=== PATIENT | female | born 1955 | race Caucasian/White ===

== ENCOUNTER 2018-12-27 10:58 | Emergency (ER) | payer BC, SELFPAY ==
[2018-12-27 11:01] VITALS: BP 137/92; PULSE 98; RESP 16; TEMP 36.6; O2SAT 98
--- NOTE | 2018-12-27 11:12 | W.ED.GENAD ---
Discharge Plan Disposition Patient Disposition: HOME Condition: Stable Discharge Details Chief Complaint: Orthopedic Clinical Impression: Contusion Primary Care Provider: Tosin Goldman V ED Provider: Salty Ulloa Home Meds and New Rx's Prescriptions: Continued lorazepam 0.5 MG tablet 0.5 mg PO PRN PRNRF: 0 Discharge Instructions Instructions: Contusion in Adults (ED) Additional Instructions: Home to rest today, may slowly advance activity and routine as tolerated. May apply over the counter topical cream such as arnica for pain relief. May use ibuprofen and/or tylenol as needed for discomfort. Return for any acute concerns. Medical Decision Making 63-year-old female presents from home with 2 days of aching right shoulder and elbow pain after falling in a grocery store. She did not injure herself in any other way. She said no numbness, tingling, or weakness. Her exam is reassuring but does demonstrate tenderness overlying the right lateral shoulder and right elbow. Patient referred for radiographic evaluation, no evidence of acute fracture. Discussed with her home management of bony contusion. She is stable for discharge at this time. HPI General Mode of arrival: ambulatory. Date/Time Provider Initiated Documentation: 12/27/18 10:58. Limitations to Documentation: no limitations. Information obtained by: patient. History of Present Illness 63 year old F presents to the emergency department with the chief complaint of Right elbow and shoulder pain after fall 2 days ago, described as moderate, Quality is described as dull, and is localized to the right and upper extremity. Patient reports no radiation. Patient started experiencing this day(s) and it has been constant. No relieving factors improve symptom(s), No exacerbating factors reported . Patient notes no other symptoms. and other (No numbness or tingling). Patient did receive the following treatments prior to arrival, none Related Data Home Medications Medication Instructions Recorded Confirmed lorazepam 0.5 mg PO PRN PRN 12/09/14 12/27/18 Allergies Allergy/AdvReac Type Severity Reaction Status Date / Time Sulfa (Sulfonamide Allergy Mild Skin Rash Unverified 12/27/18 11:08 Antibiotics) General Stated Complaint: Orthopedic PAUL: 4 Review of Systems Review of Systems 6 systems reviewed and otherwise negative. No headache/back/chest/abdominal pain or injury [facility] Social History Smoking/Tobacco Use Status: Former Tobacco Use Drug use: Daily Details: CBD oil Do you feel safe at home: Yes Do you feel safe in your relationship?: Yes Exam Narrative Exam Narrative: GEN: awake, alert, oriented 3. Pleasant, well groomed, interactive. HEAD: Normocephalic, atraumatic ENT: Mucous membranes moist, oropharynx unremarkable, External ear exam unremarkable EYES: PERRL, EOMI NECK: Full ROM, no OLIVER, no menigismus CHEST/RESP: Nontender, clear to auscultation bilateral, no wheeze/rhonchi/rales CARDIOVASCULAR: RRR, no murmur, rub devi. 2+ Rad pulse bilateral ABDOMEN: Soft, nontender, no mass. +Bowel sounds EXT: Full ROM, no edema, no rash. Health motor 5 out of 5 in the bilateral upper extremity. Some minimal pain with resisted supination of the right forearm. Tender overlying the elbow without significant focality. Right AC joint tender Neuro: Grossly normal neurologic exam, conversant, interactive. Psych: Speech fluent, thoughts congruent, affect normal Course Vital Signs Temperature 36.6 C 12/27/18 11:01 Pulse 98 H 12/27/18 11:01 Respiratory Rate 16 12/27/18 11:01 Blood Pressure 137/92 H 12/27/18 11:01 Pulse Oximetry 98 12/27/18 11:01 Temperature 36.6 C 12/27/18 11:01 Temperature Source Temporal Artery Scan 12/27/18 11:01 Pulse 98 H 12/27/18 11:01 Respiratory Rate 16 12/27/18 11:01 Respiratory Effort Non-Labored 12/27/18 11:06 Blood Pressure 137/92 H 12/27/18 11:01 Blood Pressure Position Sitting 12/27/18 11:01 Pulse Oximetry 98 12/27/18 11:01 Oxygen Delivery Method Room Air 12/27/18 11:01 Oxygen Flow Rate 0 12/27/18 11:01 Pain Level 5 12/27/18 11:01
--- NOTE | 2018-12-27 11:15 | ED.GENADUL_ITS ---
Discharge Plan Disposition Patient Disposition: HOME Condition: Stable Discharge Details Chief Complaint: Orthopedic Clinical Impression: Contusion Primary Care Provider: Tosin Goldman V ED Provider: Salty Ulloa Home Meds and New Rx's Prescriptions: Continued lorazepam 0.5 MG tablet 0.5 mg PO PRN PRNRF: 0 Discharge Instructions Instructions: Contusion in Adults (ED) Additional Instructions: Home to rest today, may slowly advance activity and routine as tolerated. May apply over the counter topical cream such as arnica for pain relief. May use ibuprofen and/or tylenol as needed for discomfort. Return for any acute concerns. Medical Decision Making 63-year-old female presents from home with 2 days of aching right shoulder and elbow pain after falling in a grocery store. She did not injure herself in any other way. She said no numbness, tingling, or weakness. Her exam is reassuring but does demonstrate tenderness overlying the right lateral shoulder and right elbow. Patient referred for radiographic evaluation, no evidence of acute fracture. Discussed with her home management of bony contusion. She is stable for discharge at this time. HPI General Mode of arrival: ambulatory . Date/Time Provider Initiated Documentation: 12/27/18 10:58 . Limitations to Documentation: no limitations . Information obtained by: patient . History of Present Illness 63 year old F presents to the emergency department with the chief complaint of Right elbow and shoulder pain after fall 2 days ago, described as moderate, Quality is described as dull, and is localized to the right and upper extremity. Patient reports no radiation. Patient started experiencing this day(s) and it has been constant. No relieving factors improve symptom(s), No exacerbating factors reported . Patient notes no other symptoms. and other (No numbness or tingling). Patient did receive the following treatments prior to arrival, none Related Data Home Medications Medication Instructions Recorded Confirmed lorazepam 0.5 mg PO PRN PRN 12/09/14 12/27/18 Allergies Allergy/AdvReac Type Severity Reaction Status Date / Time Sulfa (Sulfonamide Allergy Mild Skin Rash Unverified 12/27/18 11:08 Antibiotics) General Stated Complaint: Orthopedic PAUL: 4 Review of Systems Review of Systems 6 systems reviewed and otherwise negative. No headache/back/chest/abdominal pain or injury [facility] Social History Smoking/Tobacco Use Status: Former Tobacco Use Drug use: Daily Details: CBD oil Do you feel safe at home: Yes Do you feel safe in your relationship?: Yes Exam Narrative Exam Narrative: GEN: awake, alert, oriented 3. Pleasant, well groomed, interactive. HEAD: Normocephalic, atraumatic ENT: Mucous membranes moist, oropharynx unremarkable, External ear exam unremarkable EYES: PERRL, EOMI NECK: Full ROM, no OLIVER, no menigismus CHEST/RESP: Nontender, clear to auscultation bilateral, no wheeze/rhonchi/rales CARDIOVASCULAR: RRR, no murmur, rub devi. 2+ Rad pulse bilateral ABDOMEN: Soft, nontender, no mass. +Bowel sounds EXT: Full ROM, no edema, no rash. Health motor 5 out of 5 in the bilateral upper extremity. Some minimal pain with resisted supination of the right forearm. Tender overlying the elbow without significant focality. Right AC joint tender Neuro: Grossly normal neurologic exam, conversant, interactive. Psych: Speech fluent, thoughts congruent, affect normal Course Vital Signs Temperature 36.6 C 12/27/18 11:01 Pulse 98 H 12/27/18 11:01 Respiratory Rate 16 12/27/18 11:01 Blood Pressure 137/92 H 12/27/18 11:01 Pulse Oximetry 98 12/27/18 11:01 Temperature 36.6 C 12/27/18 11:01 Temperature Source Temporal Artery Scan 12/27/18 11:01 Pulse 98 H 12/27/18 11:01 Respiratory Rate 16 12/27/18 11:01 Respiratory Effort Non-Labored 12/27/18 11:06 Blood Pressure 137/92 H 12/27/18 11:01 Blood Pressure Position Sitting 12/27/18 11:01 Pulse Oximetry 98 12/27/18 11:01 Oxygen Delivery Method Room Air 12/27/18 11:01 Oxygen Flow Rate 0 12/27/18 11:01 Pain Level 5 12/27/18 11:01
--- NOTE | 2018-12-27 11:37 | DI.RAD_ITS ---
SYMPTOM/DIAGNOSIS: RT ELBOW PAIN AFTER FALL RIGHT ELBOW: No fracture or joint effusion is seen. There are no significant degenerative changes. IMPRESSION: Negative right elbow.
--- NOTE | 2018-12-27 11:37 | DI.RAD_ITS ---
SYMPTOM/DIAGNOSIS: PAIN AFTER FALL. RIGHT SHOULDER: No fracture or dislocation is seen. There are minimal degenerative changes of the AC joint and glenohumeral joint. Visualized portions of the right ribs appear intact. No pneumothorax is identified. IMPRESSION: No acute abnormality.
--- NOTE | 2018-12-27 12:30 | DI.VRAD_ITS ---
EXAM: XR Right Elbow EXAM DATE/TIME: 12/27/2018 11:13 AM CLINICAL HISTORY: 63 years old, female; Injury or trauma; Initial encounter; Sprain or strain; Right; Patient HX: RT elbow pain after fall. TECHNIQUE: Imaging protocol: XR Right elbow. Views: 3 or more views. COMPARISON: No relevant prior studies available. FINDINGS: Bones/joints: There is no evidence of acute fracture. There is no evidence of malalignment or dislocation. Soft tissues: Normal. IMPRESSION: There is no evidence of acute fracture. Dictated and Authenticated by: Guy Dominguez MD. Ordering:MAHSA Pond MD
--- NOTE | 2018-12-27 12:31 | DI.VRAD_ITS ---
EXAM: XR Right Shoulder EXAM DATE/TIME: 12/27/2018 11:13 AM CLINICAL HISTORY: 63 years old, female; Injury or trauma; Initial encounter; Sprain or strain; Right; Patient HX: S/P fall, pain in shoulder joint. TECHNIQUE: Imaging protocol: XR Right shoulder. Views: 2 or more views. COMPARISON: No relevant prior studies available. FINDINGS: Bones/joints: Degenerative changes in the acromioclavicular joint There is no evidence of acute fracture.There is no evidence of malalignment or dislocation. Soft tissues: Normal. IMPRESSION: There is no evidence of acute fracture.There is no evidence of malalignment or dislocation. Dictated and Authenticated by: Guy Dominguez MD. Ordering:MAHSA Pond MD
== END 2018-12-27 12:34 | disposition home or self-care (01) ==
PROVIDERS: Emergency Provider Emergency Medicine; PCP Family Medicine
DX: S40.011A Contusion of right shoulder, initial encounter (principal); S50.01XA Contusion of right elbow, initial encounter; W01.0XXA Fall on same level from slipping, tripping and stumbling without subsequent striking against object, initial encounter
CPT/HCPCS: 99284; 73030; 73080; 99282

== ENCOUNTER 2019-12-03 12:42 | Outpatient (REF) | payer BC, SELFPAY ==
--- NOTE | 2019-12-03 12:20 | PAPFT_PTH ---
PATIENT: Katelyn Pillai LOC: [facility] U#:[id number] AGE/SX: 64/F ROOM: RE12/03/[address]: Tosin Goldman V : 1955 BED: DIS: 12/03/2019 SPEC #: [id number] RECD: 12/04/19 12:43 STATUS: DEVONTE REVita #: [id number] ANGLE: 12/03/19 12:[address]: Tosin Goldman V DEPT: [facility] Cytology RECD BY: Eloisa Dodge Tissues: 1 - CX/ENDOCX FOR PAP SMEARS Procedures: PAP THIN PREP/UVM Screening HPV DNA PROBE Comments: [id number]
[2019-12-03 19:06] LABS: HGB 14.6 g/dL (12.0-15.5); Mean Corpuscular Hemoglobin 30.9 pg (27.0-33.0); Mean Corpuscular Volume 91.1 fL (80-95); Mean Platelet Volume 11.1 fL (8.0-11.0); Platelet Count 285 x1000/uL (130-400); RBC 4.72 m/cumm (4.00-5.20); RBC Distribution Width 12.8 % (11.7-14.6); White Blood Cell Count 6.59 k/cumm (4.4-10.8)
[2019-12-03 19:23] LABS: Calculated LDL 104 mg/dL (<100); Cholesterol 202 mg/dL (<200); Glucose 96 mg/dL (74-106); HDL Cholesterol 81 mg/dL (40-60); TSH (W/Ref FT4) 0.78 uIU/mL (0.36-3.74); Triglyceride 88 mg/dL (<150)
== END 2019-12-03 13:02 ==
LOC: NCHCN 12:42
PROVIDERS: PCP Family Medicine; Visit Provider Family Medicine
DX: R61 Generalized hyperhidrosis (principal); Z12.4 Encounter for screening for malignant neoplasm of cervix; Z11.51 Encounter for screening for human papillomavirus (HPV)
CPT/HCPCS: 80061; 82947; 85027; 88142; 84443; 87624

== ENCOUNTER 2020-11-07 03:01 | Outpatient (CLI) | payer BC, SELFPAY ==
[2020-11-07 10:19] LABS: Source Nasal/Nares
[2020-11-07 12:28] LABS: COVID-19 PCR Negative (Negative)
== END 2020-11-07 03:02 | disposition home or self-care (01) ==
LOC: LBO 03:01
PROVIDERS: PCP Family Medicine; Visit Provider Surgery
DX: Z20.822 Contact with and (suspected) exposure to COVID-19 (principal); Z01.818 Encounter for other preprocedural examination
CPT/HCPCS: 87635

== ENCOUNTER 2020-11-09 07:21 | Day surgery (SDC) | payer BC, SELFPAY ==
--- NOTE | 2020-11-09 06:34 | W.PREOPHP ---
Date of service: 11/09/20 Time of Service: 08:25 Assessment and Plan Assessment and plan (1) Positive colorectal cancer screening using Cologuard test: Status: Acute Assessment and plan: Mrs. Pillai is a pleasant 65-year-old female who was referred today for a colonoscopy. She had a positive Cologuard test. Her last colonoscopy was in 2011 and was normal. She denies any changes in bowel habits, melena, hematochezia, unintentional weight loss or abdominal pain. She has no family history of colon cancer that she is aware of. She is otherwise quite healthy. We discussed the colonoscopy and sedation in detail. We also reviewed Covid testing and quarantine requirements. Reviewed with patient that because she had a positive Cologuard test this colonoscopy is considered a diagnostic. The cost of the procedure will go against her deductible. Risks, benefits and complications have been reviewed. Complications include but are not limited to bleeding, pain, perforation, missed small lesion/polyp, sore throat, aspiration and adverse reaction to the medications. Questions were entertained and answered to their satisfaction and they wished to proceed. No guarantees were given or implied. COVID-19 testing explained to the patient. Reason for test reviewed. Quarantine per state requirements reviewed with patient. Patient understands and agrees to testing. Proceed with colonoscopy under sedation History of Present Illness Narrative: Mrs. Pillai is a pleasant 65-year-old female who was referred to our office for a colonoscopy. The patient had a colonoscopy in 2011 which was normal. She did a Cologuard test and this came back positive. She denies any changes in bowel habits, melena, hematochezia, unintentional weight loss or abdominal pain. She has no family history of colon cancer that she is aware of. She has no cardiac history and no prior issues. She is quite healthy. She is a bit anxious about the colonoscopy. There have been no changes in her health since I last saw her in the office Review of Systems Cardiovascular Cardiovascular: Denies chest pain, Denies chest pain at rest, Denies irregular heart rhythm, Denies dyspnea and Denies dyspnea on exertion Respiratory Respiratory: Denies cough, Denies dyspnea and Denies dyspnea on exertion Gastrointestinal Gastrointestinal: Reports as per HPI Genitourinary Genitourinary: Denies dysuria, Denies urinary incontinence and Denies urinary urgency Endocrine Endocrine: Reports system reviewed and no additional complaints, except as documented Hematologic/Lymphatic Hematologic/Lymphatic: Denies easy bruising and Denies lymphadenopathy PFSH Medical History Anxiety Attention deficit Back stiffness Cervical polyp Fibroid uterus Gangrenous appendicitis Skin lesions Vitamin D deficiency Surgical History History of appendectomy Social History Smoking/Tobacco Use Status: Former Tobacco Use Quit Date: 07/01/04 Smoking risk assessment performed?: Yes Drug use: Daily Substance use type: does not use and other Details: CBD oil Current gender identity: female Do you feel safe at home: Yes Do you feel safe in your relationship?: Yes Meds Allergies and Home Medications Allergies Allergy/AdvReac Type Severity Reaction Status Date / Time Sulfa (Sulfonamide Allergy Mild Skin Rash Unverified 11/09/20 07:40 Antibiotics) Home Medications Medication Instructions Recorded Confirmed Type lorazepam 0.5 mg PO PRN PRN 12/09/14 11/07/20 History calcium 600 mg-D3 800 unit-mag11 1 tab PO DAILY 09/16/20 11/09/20 History 50 og-ugww-lkdeij-brandy-s.borat tablet cholecalciferol (vitamin D3) 25 25 mcg PO DAILY 09/16/20 11/09/20 History mcg (1,000 unit) capsule estradiol 1 g VAGINAL QWEEK 09/16/20 11/09/20 History multivitamin 1 tab PO DAILY 09/16/20 11/09/20 History bisacodyl 5 mg tablet,delayed 5 mg PO ONCE #4 tab 09/20/20 11/09/20 Rx release polyethylene glycol 3350 17 gram 255 g PO DAILY #15 ea 09/20/20 11/09/20 Rx oral powder packet Exam Const General: healthy appearing and comfortable Resp Effort & Inspection: normal respiratory effort Auscultation: clear to auscultation bilaterally Cardio Rate: regular rate Rhythm: regular rhythm Heart Sounds: no click, no gallops and no murmurs
--- NOTE | 2020-11-09 06:36 | W.COLOREPORT ---
Date of service: 11/09/20 Time of Service: 09:10 Colonoscopy Report Date of procedure: 11/09/20 Pre-op diagnosis general: + Cologuard Post-op diagnosis procedure note: other (polyps and internal hemorrhoids) Procedure: Colonoscopy with polypectomy Surgeon: Belgica Owens Anesthesia Type: General:No Airway (ASA 2/ Verenice Simeon, KIRIT) Estimated blood loss (mL): 3 Pathology: other (Descending polyp, rectal polyps x2) Complications: None Disposition: same day Indications: Mrs. Pillai is a pleasant 65-year-old female who was referred today for a colonoscopy. She had a positive Cologuard test. Her last colonoscopy was in 2011 and was normal. She denies any changes in bowel habits, melena, hematochezia, unintentional weight loss or abdominal pain. She has no family history of colon cancer that she is aware of. She is otherwise quite healthy. We discussed the colonoscopy and sedation in detail. We also reviewed Covid testing and quarantine requirements. Reviewed with patient that because she had a positive Cologuard test this colonoscopy is considered a diagnostic. The cost of the procedure will go against her deductible. Risks, benefits and complications have been reviewed. Complications include but are not limited to bleeding, pain, perforation, missed small lesion/polyp, sore throat, aspiration and adverse reaction to the medications. Questions were entertained and answered to their satisfaction and they wished to proceed. No guarantees were given or implied. COVID-19 testing explained to the patient. Reason for test reviewed. Quarantine per state requirements reviewed with patient. Patient understands and agrees to testing. Proceed with colonoscopy under sedation Prep: Miralax/Dulcolax Procedure Start Time: 08:36 Procedure End Time: 09:59 Retraction Time: 26 minutes Findings: 3 polyps Grade 1 internal hemorrhoids Procedure Description: After informed consent was obtained the patient was taken to the procedure room and placed in a left decubitous position. Monitors were applied and a time out was done. The patients name, date of , procedure, allergies to medications and metal in their body was reviewed. The patient was then sedated. Once sedated and comfortable a rectal exam was done. External exam was normal. Internal exam revealed a normal sphincter tone and no palpable masses. The scope was then introduced and retro-flexed. Grade 1 internal hemorrhoids noted. No polyps or masses were identified on retro-flexion. The scope was then advanced to the cecum without difficulty. The ileocecal vlave and appendiceal orifice were identified. The prep was good. The scope was then slowly retracted over 26 minutes back into the rectum. Polyps were removed with cold forceps in the descending colon and rectum x2. There was no diverticulosis noted. The scope was removed and the patient was woken up and taken back to Same day surgery in stable condition. The patient tolerated the procedure well and there were no immediate complications. Follow up: The patient should follow up in 3-5 years unless they develop changes in bowel habits or other new gastrointestinal complaints.
--- NOTE | 2020-11-09 06:36 | W.PM.DSUDISC ---
Discharge Plan Disposition Patient Disposition: HOME Condition: Good Discharge Details Reason For Visit: colonoscopy Attending Provider: Belgica Owens Primary Care Provider: Tosin Goldman V Home Meds and New Rx's Prescriptions: Continued multivitamin Tablet 1 tab PO DAILY RF: 0 cholecalciferol (vitamin D3) 25 mcg (1,000 unit) capsule 25 mcg PO DAILY RF: 0 Caltrate 600-D Plus Minerals 600 mg calcium- 800 unit-50 mg tablet 1 tab PO DAILY RF: 0 estradiol [Estrace] 0.01 % (0.1 mg/gram) cream 1 g vaginal QWEEK RF: 0 lorazepam 0.5 MG tablet 0.5 mg PO PRN PRNRF: 0 Discontinued bisacodyl [Dulcolax (bisacodyl)] 5 mg tablet,delayed release (DR/EC) 5 mg PO ONCE Qty: 4 RF: 0 polyethylene glycol 3350 17 gram powder in packet 255 g PO DAILY Qty: 15 RF: 0 Discharge Instructions Instructions: Hemorrhoids (DC), Colorectal Polyps (DC) Additional Instructions: Findings: polyps internal hemorrhoids Follow up: 3-5 years Please call if you develop: fevers >101.5 Nausea or Vomiting Abdominal pain that is not transient Rectal bleeding that is more then a tbsp A hard abdomen and inability to pass gas DAY SURGERY UNIT POST ENDOSCOPY INSTRUCTIONS Instructions for everyone who is given Anesthesia: For your safety, please do the following for the next 24 Hours: a. [address] not drive or operate dangerous equipment b. Do not drink alcohol beverages or use any recreational drugs for the first 24 hours or while taking pain medications. The medications in your body may have a reaction that can be dangerous. c. Do not make any important decisions or sign any important papers 1. Generally there are no restrictions on your activity after a day or so has gone by, but you may feel a bit fatigued for a few days. 2. After you arrive home you may have a light meal and return to a normal diet as you can tolerate it without feeling sick to your stomach. 3. After surgery, you may feel pain or discomfort. This should be only transient, but if it persists please contact your doctor. 4. If there are any questions regarding the findings of your procedure, please feel free to contact your doctor. 6. If you are unable to contact your doctor with a problem, contact the hospital at [phone]. 5. Continue all your regular medications unless directed otherwise. I understand the above instructions and have no questions. Signature of Patient or Responsible Adult Escort Date/Time Name of Responsible Adult Escort Signature of Nurse Date/Time Activity:: Activity as Tolerated Diet:: high fiber Discharge Orders Discharge Orders: Discharge Order (Routine); Ordered 11/09/20 Ordered By: Belgica Owens DS: Diagnosis Discharge Diagnosis (1) Positive colorectal cancer screening using Cologuard test: Status: Acute
[2020-11-09 07:30] VITALS: BP 134/44; PULSE 89; RESP 18; TEMP 36.5; O2SAT 96
[2020-11-09] MEDS: Lactated Ringers 1,000 ML 80 ML IV (07:55)
--- NOTE | 2020-11-09 08:22 | W.ANESPRE ---
General Info Date of Service Date Performed: 11/09/20 Height: 5 ft 7 in Weight: 75.8 kg Body Mass Index (BMI): 26.2 Surgical Procedure: Operation Date: 11/09/20 08:50 Proposed Procedures Side Surgeon p Colonoscopy Belgica Owens MD Meds Allergies and Home Medications Allergies Allergy/AdvReac Type Severity Reaction Status Date / Time Sulfa (Sulfonamide Allergy Mild Skin Rash Unverified 11/09/20 07:40 Antibiotics) Home Medication Medication Instructions Recorded lorazepam 0.5 mg PO PRN PRN 12/09/14 calcium 600 mg-D3 800 unit-mag11 1 tab PO DAILY 09/16/20 50 pi-voel-llicib-brandy-s.borat tablet cholecalciferol (vitamin D3) 25 25 mcg PO DAILY 09/16/20 mcg (1,000 unit) capsule estradiol 1 g VAGINAL QWEEK 09/16/20 multivitamin 1 tab PO DAILY 09/16/20 bisacodyl 5 mg tablet,delayed 5 mg PO ONCE #4 tab 09/20/20 release polyethylene glycol 3350 17 gram 255 g PO DAILY #15 ea 09/20/20 oral powder packet Current Visit Medications: Current Medications Generic Name Dose Route Start Last Admin Trade Name Freq PRN Reason Stop Dose Admin Hyoscyamine Sulfate 0.125 mg 11/09/20 06:37 Hyoscyamine 0.125 Mg Sl/Oral/Chew SL DIRECTED PRN Ringer's Solution 1,000 mls @ 80 mls/hr 11/09/20 06:00 11/09/20 07:55 IV 12/08/20 23:59 80 mls/hr INFUSION NIDHI Administration IV Miscellaneous Supplies 1 each 11/09/20 06:00 Iv Access IV 12/08/20 23:59 DIRECTED NIDHI Ondansetron HCl 4 mg 11/09/20 06:37 Ondansetron 4 Mg/2 Ml Vial IVP Q4H PRN PRN Nausea / Vomiting Sodium Chloride 0 ml 11/09/20 06:00 Normal Saline Flush 10 Ml Syr IV 12/08/20 23:59 PRN PRN Sodium Chloride 0 ml 11/09/20 06:00 Normal Saline 10 Ml Vial IJ 12/08/20 23:59 DIRECTED PRN Sterile Water 0 ml 11/09/20 06:00 Water,Injection,Sterile 10 Ml Vial IJ 12/08/20 23:59 DIRECTED PRN PFSH Active Problems Active Problems: Problem Status Onset Code Positive colorectal cancer screening using Cologuard test R19.5 Medical History Medical History Anxiety Attention deficit Back stiffness Cervical polyp Fibroid uterus Gangrenous appendicitis Skin lesions Vitamin D deficiency Surgical History Surgical History History of appendectomy Tobacco Smoking/Tobacco Use Status: Former Tobacco Use Alcohol Alcohol Intake: never Substance Use Substance use: Never Substance use type: does not use Details: CBD oil Vital Signs and Lab Results Vital Signs Most Recent Vital Signs in EMR: Most Recent Vital Signs Temp Pulse Resp BP Pulse Ox 36.5 C 89 18 134/44 L 96 11/09/20 07:30 11/09/20 07:30 11/09/20 07:30 11/09/20 07:30 11/09/20 07:30 Lab Results Blood Type / Crossmatch: No Data to Display Complete Blood Count: White Blood Count 6.59 k/cumm (4.4-10.8) 12/03/19 12:35 12/03/19 Red Blood Count 4.72 m/cumm (4.00-5.20) 12/03/19 12:35 12/03/19 Hemoglobin 14.6 g/dL (12.0-15.5) 12/03/19 12:35 12/03/19 Hematocrit 43.0 % (36.0-46.0) 12/03/19 12:35 12/03/19 Platelet Count 285 x1000/uL (130-400) 12/03/19 12:35 12/03/19 Complete Metabolic Panel: Sodium Level 140 mmol/L (136-145) 08/12/14 11:01 08/12/14 Potassium Level 3.9 mmol/L (3.5-5.1) 08/12/14 11:08/12/14 Chloride Level 100 mmol/L (98-107) 08/12/14 11:01 08/12/14 Carbon Dioxide Level 28.3 mmol/L (21.0-32.0) 08/12/14 11:01 08/12/14 Blood Urea Nitrogen 19 mg/dL (7-18) H 08/12/14 11:01 08/12/14 Creatinine 0.9 mg/dL (0.6-1.0) 08/12/14 11:01 08/12/14 Calcium Level 9.5 mg/dL (8.5-10.1) 08/12/14 11:01 08/12/14 Albumin 4.2 g/dL (3.4-5.0) 08/12/14 11:01 08/12/14 Glucose Level 96 mg/dL (74-106) 12/03/19 12:35 12/03/19 Liver Function Panel: Alanine Aminotransferase (ALT/SGPT) 29 U/L (12-78) 08/12/14 11:01 08/12/14 Aspartate Amino Transf (AST/SGOT) 24 U/L (15-37) 08/12/14 11:01 08/12/14 Coagulation Panel: No Data to Display Cardiac Panel: No Data to Display Arterial Blood Gas: No Data to Display Venous Blood Gas: No Data to Display Pancreas Panel: Amylase Level 49 U/L (25-115) 08/07/12 11:20 08/07/12 Lipase 113 U/L (73-393) 08/07/12 11:20 08/07/12 Thyroid Panel: Thyroid Stimulating Hormone (TSH) 0.78 uIU/mL (0.36-3.74) 12/03/19 12:35 12/03/19 Infectious Disease: Coronavirus (COVID-19)(PCR) Negative (Negative) 11/07/20 10:01 11/07/20 Coronavirus 2019 Source Nasal/nares 11/07/20 10:01 11/07/20 Blood Cultures: No Data to Display Toxicology Panel: No Data to Display Anesthesia Assessment and Plan Anesthesia History Personal History: No History of Anesthesia Complications Family History: No Family History of Anesthesia Complications Exercise Tolerance Exercise Tolerance: Metabolic Equivalents>4 Pertinent Negatives Pertinent Negatives: No Symptoms of GERD Cardiac & Pulmonary Exam Cardiac Exam: Normal S1/S2 Heart Sounds Pulmonary Exam: Clear Bilateral Breath Sounds Airway Exam Known Difficult Airway: No Mallampati Class: 1 Mouth Opening: Normal (> 3cm) Thyromental Distance: Greater than 3 cm Neck Range of Motion: Full ROM Neck Circumference: Normal Teeth Condition: Normal Dentition ASA Classification ASA Score: ASA 2 Emergency Case?: No NPO Status NPO Status: NPO Clears >2 hours, Solids >8 hours Anesthesia Plan Anesthesia Technique: General Anesthesia Airway Planned: Natural Airway Monitors Used: Standard Monitors
[2020-11-09 08:30] VITALS: BMI 26.2
--- NOTE | 2020-11-09 08:52 | BOWEL_PTH ---
PATIENT: Katelyn Pillai LOC: [facility] U#:[id number] AGE/SX: 65/F ROOM: RE11/09/[address]: Belgica Owens MD : 1955 BED: DIS: 11/09/2020 SPEC #: [id number] RECD: 11/09/20 12:37 STATUS: DEVONTE REQ #: [id number] ANGLE: 11/09/20 08:[address]: Belgica Owens DEPT: Surgical Specimen RECD BY: Eloisa Dodge ENTERED: 11/09/20 12:38 SP TYPE: Bowel OTHR DR: Tosin Goldman V Tissues: 1 - BIOPSY BOWEL 2 - BIOPSY BOWEL Procedures: GROSS AND MICRO LEVEL 4 Comments: [id number]
[2020-11-09 09:05] VITALS: BP 122/71; PULSE 86; RESP 18; TEMP 36.3; O2SAT 98
--- NOTE | 2020-11-09 09:06 | W.ANESPOSTOP ---
Postoperative Evaluation Date, Time and Location Date Performed: 11/09/20 Time Performed: 09:06 Patient Location: Day Surgery Unit Vital Signs Most Recent Imported Vital Signs: Most Recent Vital Signs Temp Pulse Resp BP Pulse Ox 36.5 C 89 18 134/44 L 96 11/09/20 07:30 11/09/20 07:30 11/09/20 07:30 11/09/20 07:30 11/09/20 07:30 Most Recent Manually Entered Vital Signs: Adult Blood Pressure: 122/71 Heart Rate: 87 Respirations: 22 Oxygen Saturation (%): 98 Temperature (C): 36.3 C Pain Score (0-10 Scale): 0 Assessment Mental Status: Arousable with meaningful communication Airway and Respiratory Function: Patent airway with normal (patient baseline) respiratory exam Cardiovascular Function: Hemodynamically Stable Hydration Status: Adequately Hydrated Nausea & Vomiting: No Nausea or Vomiting Pain: Pt. Denies Any Pain Peripheral Nerve Block: Patient did not receive a nerve block
[2020-11-09 09:08] VITALS: BP 122/71; PULSE 87; RESP 22; TEMPC 36.3; O2SAT 98
[2020-11-09 09:35] VITALS: BP 131/58; PULSE 69; RESP 18; TEMP 36.3; O2SAT 99
== END 2020-11-09 10:05 | disposition home or self-care (01) ==
LOC: SUR 07:22
PROVIDERS: PCP Family Medicine; Visit Provider Surgery
PROC: 0DJD8ZZ Inspection of Lower Intestinal Tract, Via Natural or Artificial Opening Endoscopic (ICD-10-PCS; CPT 45378; principal; 2020-11-09 08:45)
DX: R19.5 Other fecal abnormalities (principal); K63.5 Polyp of colon; D12.8 Benign neoplasm of rectum; K64.0 First degree hemorrhoids
CPT/HCPCS: 45380; 88305; J2001; J2704

== ENCOUNTER 2021-05-02 15:32 | Outpatient (REF) | payer BC, SELFPAY ==
[2021-05-04 15:04] LABS: COVID-19 RT-PCR UVMMC Result Negative (Negative)
== END 2021-05-02 15:33 | disposition home or self-care (01) ==
LOC: NCHCN 15:32
PROVIDERS: PCP Family Medicine; Visit Provider Family Medicine
DX: Z20.822 Contact with and (suspected) exposure to COVID-19 (principal); J06.9 Acute upper respiratory infection, unspecified
CPT/HCPCS: U0003

== ENCOUNTER 2023-11-05 14:52 | Outpatient (REF) | payer MEDICARE, SELFPAY ==
[2023-11-05 19:10] LABS: Anion Gap 12.2 mmol/L (3-11); BUN 18 mg/dL (7-18); CO2 23.8 mmol/L (21.0-32.0); CREATININE 0.8 mg/dL (0.55-1.02); Calcium 9.6 mg/dL (8.5-10.1); Calculated LDL 109 mg/dL (<100); Chloride 107 mmol/L (98-107); Cholesterol 204 mg/dL (<200); Estimated GFR 80.21 (mL/min/1.73m2); Glucose 93 mg/dL (74-106); HDL Cholesterol 72 mg/dL (40-60); Potassium 3.8 mmol/L (3.5-5.1); Sodium 143 mmol/L (136-145); TSH 1.01 uIU/Ml (0.36-3.74); Triglyceride 118 mg/dL (<150)
== END 2023-11-05 14:53 | disposition home or self-care (01) ==
LOC: NCHCN 14:52
PROVIDERS: PCP Family Medicine; Visit Provider Family Medicine
DX: Z00.00 Encounter for general adult medical examination without abnormal findings (principal)
CPT/HCPCS: 80048; 80061; 84443

== ENCOUNTER 2024-04-27 11:53 | Emergency (ER) | payer MEDICARE, SELFPAY ==
[2024-04-27 11:57] VITALS: BP 132/65; PULSE 106; RESP 16; TEMP 37.2; O2SAT 96
[2024-04-27 12:10] VITALS: BP 132/65; PULSE 106; RESP 16; TEMP 37.2; O2SAT 96
--- NOTE | 2024-04-27 12:50 | DI.RAD_ITS ---
Exam(s) XR CHEST 2V PA LATERAL EXAM: XR CHEST 2V PA LATERAL CLINICAL HISTORY: cough TECHNIQUE: 2D digital imaging was performed. Two views. COMPARISON: CR CHEST 2 VIEWS PA,LAT from 02/21/2017 FINDINGS: HEART: Normal size. Aorta: Not dilated. Mildly tortuous. PULMONARY VASCULATURE: Normal. MEDIASTINUM: Unremarkable. LUNGS: Clear. PLEURAL SPACE: No pleural effusion or pneumothorax. BONE:Unremarkable for age. SOFT TISSUES: Unremarkable. IMPRESSION: No acute abnormality. DATA REPOSITORY: RADIATION DOSE DELIVERED:
[2024-04-27 13:11] VITALS: BP 125/79; PULSE 79; RESP 20; O2SAT 95
--- NOTE | 2024-04-27 16:55 | W.ED.GENAD ---
Discharge Plan Disposition Patient Disposition: Home Condition: Stable Discharge Details Clinical Impression: URI (upper respiratory infection), Cough Primary Care Provider: Tosin Goldman V ED Provider: Bernardo Christie Home Meds and New Rx's Prescriptions: New benzonatate 100 mg capsule 100 mg PO TID PRN (Reason: cough) Qty: 30 0RF promethazine 6.25 mg/5 mL syrup 12.5 mg PO Q6H PRN (Reason: cough) Qty: 120 0RF No Action multivitamin Tablet 1 tab PO DAILY cholecalciferol (vitamin D3) 25 mcg (1,000 unit) capsule 25 mcg PO DAILY Caltrate 600-D Plus Minerals 600 mg calcium- 800 unit-50 mg tablet 1 tab PO DAILY estradiol [Estrace] 0.01 % (0.1 mg/gram) cream 1 g vaginal QWEEK lorazepam 0.5 MG tablet 0.5 mg PO PRN PRN alendronate 70 mg tablet 70 mg PO QWEEK Patient Comments: TAKE ONE TABLET BY MOUTH EVERY WEEK SWALLOWING THE WHOLE TABLET WITH 6-8 OUNCES OF WATER ON AN EMPTY STOMACH REMAIN UPRIGHT FOR AT LEAST 30 Discharge Instructions Instructions: Cough, Adult ED Additional Instructions: No signs of pneumonia on chest x-ray. So there is no need for antibiotics at this time. Will send cough medication to the pharmacy to help with your symptoms. Please also take [id number] Mucinex. Make sure to stay hydrated. If you develop fever, significant shortness of breath or worsening symptoms, please return for reevaluation or follow-up with your primary care provider. Discharge Data Discharge Date/Time-TO BE ENTERED AT DEPARTURE: 04/27/24 13:13 HPI General Date/Time Provider Initiated Documentation: 04/27/24 12:28. Limitations to Documentation: no limitations. Information obtained by: patient. HPI Narrative: 68-year-old female without significant past medical history presents for evaluation of URI and cough. Reports that symptoms have been ongoing for the last week. She reports her cough is sometimes productive with some phlegm. She denies any chest pain or fever. She reports some mild nasal congestion. Related Data Home Medications ?Medication ?Instructions ?Recorded ?Confirmed lorazepam 0.5 mg tablet 0.5 mg PO PRN PRN 12/09/14 04/27/24 calcium 600 mg-D3 800 unit-mag11 1 tab PO DAILY 09/16/20 04/27/24 50 pb-ijpv-qswmky-brandy-s.borat tablet (Caltrate 600-D Plus Minerals) cholecalciferol (vitamin D3) 25 25 mcg PO DAILY 09/16/20 04/27/24 mcg (1,000 unit) capsule estradiol 0.01% (0.1 mg/gram) 1 g vaginal QWEEK 09/16/20 04/27/24 vaginal cream (Estrace) multivitamin 1 tab PO DAILY 09/16/20 04/27/24 alendronate 70 mg tablet 70 mg PO QWEEK 04/27/24 04/27/24 benzonatate 100 mg capsule 100 mg PO TID PRN cough #30 caps 04/27/24 promethazine 6.25 mg/5 mL oral 12.5 mg (10 mL) PO Q6H PRN cough 04/27/24 syrup #120 mL Previous Rx's ?Medication ?Instructions ?Recorded benzonatate 100 mg capsule 100 mg PO TID PRN cough #30 caps 04/27/24 promethazine 6.25 mg/5 mL oral 12.5 mg (10 mL) PO Q6H PRN cough 04/27/24 syrup #120 mL Allergies Allergy/AdvReac Type Severity Reaction Status Date / Time Sulfa (Sulfonamide Allergy Mild Skin Rash Unverified 04/27/24 11:59 Antibiotics) General Stated Complaint: RespSymp PAUL: 4 Exam Narrative Exam Narrative: Review of Systems: All systems reviewed & are unremarkable except as noted in HPI and below Well-developed, no acute distress NCAT PERRL, normal conjunctiva RRR no murmur Unlabored respiratory effort clear bilaterally Nondistended abdomen Course Vital Signs Vital signs: Vital Signs Temperature 37.2 C 04/27/24 11:57 Pulse 106 H 04/27/24 11:57 Respiratory Rate 16 04/27/24 11:57 Blood Pressure 132/65 04/27/24 11:57 Pulse Oximetry 96 04/27/24 11:57 Temperature 37.2 C 04/27/24 12:10 Pulse 79 04/27/24 13:11 Respiratory Rate 20 04/27/24 13:11 Respiratory Effort Normal, Non-Labored 04/27/24 13:12 Respiratory Depth Normal 04/27/24 13:12 Blood Pressure 125/79 04/27/24 13:11 Blood Pressure Position Sitting 04/27/24 12:10 Pulse Oximetry 95 04/27/24 13:11 Oxygen Delivery Method Room Air 04/27/24 12:10 Oxygen Flow Rate 0 04/27/24 12:10 Pain Level 0 04/27/24 12:10 Medical Decision Making Emergent evaluation of URI and cough. Patient is well-appearing, afebrile, not tachypneic or hypoxic. She has clear breath sounds bilaterally. Clinically have a low suspicion for pneumonia. Given her general URI symptoms and lack of chest pain, I do not feel that there is an acute cardiac etiology or new onset heart failure. No risk factors or concerns for PE. Given her ongoing duration of symptoms, a chest x-ray was obtained. Independent review and interpretation: No focal consolidation, normal heart size, no pulmonary edema or pleural effusion. These findings were confirmed by the radiologist. No indication for antibiotics. Cough medication was sent to the pharmacy. Recommend close follow-up with PCP if she has ongoing symptoms. Return precautions advised. Quality:SDOH Health Related Social Needs: No Data to Display [facility] All Active Problems Cough (Acute) URI (upper respiratory infection) (Acute) Tubular adenoma (Acute ~10/2020) Colon polyp, hyperplastic (Acute ~10/2020) Positive colorectal cancer screening using Cologuard test (Acute) Medical History Cervical polyp Fibroid uterus Gangrenous appendicitis Vitamin D deficiency Back stiffness Attention deficit Anxiety Skin lesions Surgical History History of colonoscopy (~10/2020) History of appendectomy Social History Smoking/Tobacco Use Status: Former Tobacco Use Quit Date: 07/01/04 Smoking risk assessment performed?: Yes Alcohol Intake: never Drug use: Never Substance use type: does not use Details: CBD oil Current gender identity: female Do you feel safe at home: Yes Do you feel safe in your relationship?: Yes
== END 2024-04-27 13:13 | disposition home or self-care (01) ==
PROVIDERS: Emergency Provider Emergency Medicine; PCP Family Medicine
DX: J06.9 Acute upper respiratory infection, unspecified (principal); R05.9 Cough, unspecified
CPT/HCPCS: 99283; 71046

== ENCOUNTER 2025-02-03 10:55 | Outpatient (REF) | payer MEDICARE, SELFPAY | END 2025-02-03 10:56 | disposition home or self-care (01) | LOC: LBN 10:55 | PROVIDERS: PCP Family Medicine; Visit Provider Physician Assistant | DX: N39.0 Urinary tract infection, site not specified (principal) | CPT/HCPCS: 87086 ==